=== PATIENT | male | born 1940 | race Caucasian/White ===

== ENCOUNTER 2020-09-01 15:54 | Inpatient (IN) | payer MEDICARE ==
[2020-09-01 20:23] VITALS: BMI 21.7
[2020-09-01] MEDS ORDERED: Ondansetron ODT 4 MG TAB PO PRN (20:39)
[2020-09-01] MEDS ORDERED: Senokot S 8.6-50 MG TAB PO PRN (20:39)
[2020-09-01] MEDS ORDERED: Zolpidem Tartrate 5 MG TAB PO PRN (20:39)
[2020-09-01] MEDS ORDERED: Acetaminophen 500 MG TAB PO PRN (20:50)
[2020-09-01] MEDS ORDERED: Dextrose 50% Abboject 50 ML SYRINGE SLOW IVP PRN (20:53)
[2020-09-01] MEDS: Famotidine 20 MG TAB PO SCH (22:43)
[2020-09-01] MEDS: Clindamycin 150 MG CAP PO SCH (22:44)
[2020-09-01] MEDS: Sulfameth/Trimethoprim DS 800-160mg TAB PO SCH (22:44)
[2020-09-01] MEDS: Carvedilol 6.25 MG TAB PO SCH (22:45)
[2020-09-02] MEDS: HumaLOG 300 UNITS/3 ML VIAL SC PRN ×4 (00:46→17:08)
[2020-09-02] MEDS: Clindamycin 150 MG CAP PO SCH ×3 (05:48→21:06)
[2020-09-02] MEDS: Enoxaparin Sodium 30 MG/0.3 ML SYRINGE SC SCH (08:24)
[2020-09-02] MEDS: Aspirin 81 mg Enteric Coated Tablet PO SCH (08:25)
[2020-09-02] MEDS: Carvedilol 6.25 MG TAB PO SCH ×2 (08:25→21:06)
[2020-09-02] MEDS: Multivit, Therapeutic 1 TAB PO SCH (08:25)
[2020-09-02] MEDS: metFORMIN 500 MG TAB PO SCH ×2 (08:25→17:08)
[2020-09-02] MEDS: Sulfameth/Trimethoprim DS 800-160mg TAB PO SCH ×2 (08:25→21:06)
[2020-09-02] MEDS: Famotidine 20 MG TAB PO SCH ×2 (08:25→21:06)
[2020-09-02] MEDS ORDERED: Non-Formulary Item 1 EACH (Lovastatin [Lovastatin] 10 MG Tablet) PO SCH (17:00)
[2020-09-02] MEDS: Simvastatin 5 MG TAB PO SCH (17:09)
--- NOTE | 2020-09-02 22:50 | HP ---
PRIMARY CARE PHYSICIAN: Out of town. REASON FOR ADMISSION: For skilled rehabilitation at [facility] due to cellulitis of the right foot and lower extremities and physical deconditioning. 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 The patient stated he had been falling every evening when he goes to the bathroom via his wheelchair and upon transferring to the toilet, he will be unable to hold his weight and fallen to the ground. He states he does not normally have difficulty transferring and he recently completed a course of antibiotics for right lower extremity cellulitis. The patient noted he had been progressively getting weak for the last few months. He denied any head injuries, but complains of mild lower discomfort to his lower back. He denied any chest pain, palpitation, or shortness of breath. The patient had a chest x-ray done today in the emergency room, which showed no acute process. He had a CAT scan of the brain done, which showed no acute intracranial processes. An EKG was paced with a heart rate of 113. Upon further evaluation, patient was admitted for generalized weakness, recurrent falls, and cellulitis of his right foot. The patient was started on IV antibiotics and PT/OT was consulted. The patient was also noted to have some superficial wounds to the right lower extremity. He received IV antibiotics. The patient had a full workup and was noted not to be septic. He tolerated the antibiotic well and the decision was made to transfer the patient to skilled rehabilitation for continuation of therapy and continuation of his antibiotic. During hospitalization in [place], the patient had some episodes of confusion, but these progressively resolved. He had an x-ray of the foot done, which did not reveal any osteomyelitis. The patient was evaluated by Physical Therapy and transferred to [facility] for skilled rehabilitation. Upon evaluation of the patient today, he was alert, awake, and oriented x3. He was excited to be in facility. He complains of some pain to the right foot, but other than that, he feels well. He denies any chest pain, shortness of breath, palpitation, or dizziness. PAST MEDICAL HISTORY: Hypertension, coronary artery disease, diabetes type 2, hyperlipidemia. No history of tobacco use. History of broken left arm. PAST SURGICAL HISTORY: AICD placement, CABG x4, amputations of all toes on the right foot, appendectomy. SOCIAL HISTORY: Previously smoked, but quit more than 10 years ago. Denies alcohol use. Denies illicit drug use. Patient lives at home with his family and spouse. FAMILY HISTORY: Patient states both his parents are and had history of high blood pressures. ALLERGIES: THE PATIENT IS ALLERGIC TO CEPHALEXIN. CODE STATUS: The patient is a full code. MEDICATIONS: 1. Tylenol 1000 q.6 hours p.r.n. 2. Coreg 12.5 b.i.d. 3. Clindamycin 300 q.8 x12 days. 4. Lovastatin 20 mg daily. 5. Multivitamin one tab daily. 6. Metformin 1000 b.i.d. 7. Pepcid 20 mg b.i.d. 8. Bactrim DS one tab b.i.d. x10 days. REVIEW OF SYSTEMS: CONSTITUTIONAL: Patient denies any fever or chills. Complains of generalized weakness and fatigue. HEENT: No acute visual or hearing changes. RESPIRATORY: Denies cough, sputum production, shortness of breath. CARDIOVASCULAR: Denies chest pain, dyspnea on exertion, paroxysmal nocturnal dyspnea. GASTROINTESTINAL: Denies nausea, vomiting, constipation, or diarrhea. GENITOURINARY: Denies dysuria, frequency, or urgency. MUSCULOSKELETAL: Patient complains of right foot pain. NEUROLOGICAL: Denies syncopes, focal paralysis, or paresthesia. Denies dizziness. PSYCHIATRIC: Denies anxiety, depression, insomnia, or hallucinations. PHYSICAL EXAMINATION: VITAL SIGNS: Temperature 98.4, pulse 86, respirations 18, O2 saturation 95% on room air, blood pressure 132/76. GENERAL: The patient is alert, awake, and oriented x3. Sitting up in bed, in no apparent distress. HEENT: Eyes, PERRL. Anicteric sclerae. Normocephalic, atraumatic. Moist oral mucous membranes. Extraocular movements intact. NECK: Supple. No lymphadenopathy. HEART: S1 and S2. Regular rate and rhythm. Normal pulses. RESPIRATORY: Clear to auscultation bilaterally. No wheezing. No rhonchi. GASTROINTESTINAL: Positive bowel sounds. Soft, nontender, nondistended. No guarding. No rebound. EXTREMITIES: No edema. Other findings: The patient does have erythema to the right lower foot, diffusely dry yellow flaking skin. The patient does have a superficial oozing; one to the top of his right foot and also the top of his left foot, which is also draining serosanguineous discharge with mild tenderness. ASSESSMENT: 1. Physical deconditioning. 2. Cellulitis of the right foot. 3. Recurrent falls. 4. Peripheral vascular disease. 5. Hypertension. 6. Hyperlipidemia. 7. Diabetes type 2, controlled with oral medications. PLAN: Patient is a 80-year-old male who is admitted for physical deconditioning due to cellulitis of his right foot. The patient will continue oral clindamycin and Bactrim times 10 to 12 days. Patient will continue on all his home medications. We will treat pain with Tylenol. The patient on Lovenox for DVT prophylaxis and Pepcid for GI prophylaxis. The patient will be on Accu-Chek before meals and at bedtime. We will monitor him closely for any hemodynamic instability. We will consult Physical Therapy for gait, ambulation, and strengthening. We will consult Occupational Therapy to help with activities of daily living prior to discharge back to his home. We will do daily wound care to his foot. ESTIMATED LENGTH OF STAY: 1 to 2 weeks. Job ID: [id number]
[2020-09-03] MEDS: Clindamycin 150 MG CAP PO SCH ×3 (05:31→21:12)
[2020-09-03] MEDS: Aspirin 81 mg Enteric Coated Tablet PO SCH (08:46)
[2020-09-03] MEDS: Enoxaparin Sodium 30 MG/0.3 ML SYRINGE SC SCH (08:46)
[2020-09-03] MEDS: metFORMIN 500 MG TAB PO SCH ×2 (08:46→17:29)
[2020-09-03] MEDS: Carvedilol 6.25 MG TAB PO SCH ×2 (08:46→21:10)
[2020-09-03] MEDS: Multivit, Therapeutic 1 TAB PO SCH (08:46)
[2020-09-03] MEDS: Famotidine 20 MG TAB PO SCH ×2 (08:46→21:10)
[2020-09-03] MEDS: Sulfameth/Trimethoprim DS 800-160mg TAB PO SCH ×2 (08:46→21:10)
[2020-09-03] MEDS: HumaLOG 300 UNITS/3 ML VIAL SC PRN ×2 (08:58→17:29)
[2020-09-03] MEDS: Simvastatin 5 MG TAB PO SCH (17:28)
[2020-09-04] MEDS: Clindamycin 150 MG CAP PO SCH ×3 (05:17→22:19)
[2020-09-04] MEDS: Famotidine 20 MG TAB PO SCH ×2 (08:38→20:57)
[2020-09-04] MEDS: Aspirin 81 mg Enteric Coated Tablet PO SCH (08:38)
[2020-09-04] MEDS: Sulfameth/Trimethoprim DS 800-160mg TAB PO SCH ×2 (08:38→20:57)
[2020-09-04] MEDS: metFORMIN 500 MG TAB PO SCH ×2 (08:38→17:20)
[2020-09-04] MEDS: Enoxaparin Sodium 30 MG/0.3 ML SYRINGE SC SCH (08:39)
[2020-09-04] MEDS: Multivit, Therapeutic 1 TAB PO SCH (08:39)
[2020-09-04] MEDS: Carvedilol 6.25 MG TAB PO SCH ×2 (08:40→20:57)
[2020-09-04] MEDS: HumaLOG 300 UNITS/3 ML VIAL SC PRN (11:58)
[2020-09-04] MEDS ORDERED: metFORMIN 500 MG TAB ONE (17:14)
[2020-09-04] MEDS: Simvastatin 5 MG TAB PO SCH (17:21)
[2020-09-05] MEDS: Clindamycin 150 MG CAP PO SCH ×3 (05:18→22:14)
[2020-09-05] MEDS: Famotidine 20 MG TAB PO SCH ×2 (08:01→22:13)
[2020-09-05] MEDS: Carvedilol 6.25 MG TAB PO SCH ×2 (08:01→22:13)
[2020-09-05] MEDS: Aspirin 81 mg Enteric Coated Tablet PO SCH (08:03)
[2020-09-05] MEDS: Sulfameth/Trimethoprim DS 800-160mg TAB PO SCH ×2 (08:03→21:30)
[2020-09-05] MEDS: Multivit, Therapeutic 1 TAB PO SCH (08:03)
[2020-09-05] MEDS: Enoxaparin Sodium 30 MG/0.3 ML SYRINGE SC SCH (08:03)
[2020-09-05] MEDS: metFORMIN 500 MG TAB PO SCH ×2 (08:07→16:59)
[2020-09-05] MEDS: HumaLOG 300 UNITS/3 ML VIAL SC PRN (11:43)
[2020-09-05] MEDS: Simvastatin 5 MG TAB PO SCH (16:58)
[2020-09-06] MEDS: Clindamycin 150 MG CAP PO SCH ×3 (05:22→21:14)
[2020-09-06] MEDS: Famotidine 20 MG TAB PO SCH ×2 (08:35→20:19)
[2020-09-06] MEDS: Aspirin 81 mg Enteric Coated Tablet PO SCH (08:35)
[2020-09-06] MEDS: metFORMIN 500 MG TAB PO SCH ×2 (08:35→16:58)
[2020-09-06] MEDS: Sulfameth/Trimethoprim DS 800-160mg TAB PO SCH ×2 (08:35→20:19)
[2020-09-06] MEDS: Multivit, Therapeutic 1 TAB PO SCH (08:35)
[2020-09-06] MEDS: Enoxaparin Sodium 30 MG/0.3 ML SYRINGE SC SCH (08:36)
[2020-09-06] MEDS: Carvedilol 6.25 MG TAB PO SCH ×2 (08:36→20:19)
[2020-09-06] MEDS ORDERED: Emollient 15 oz bottle 450 ML, Triamcinolone Acetonide 200 MG TOP SCH ×2 (14:45→15:00)
[2020-09-06] MEDS: Simvastatin 5 MG TAB PO SCH (16:58)
[2020-09-07] MEDS: Clindamycin 150 MG CAP PO SCH ×3 (04:59→21:50)
[2020-09-07] MEDS: Aspirin 81 mg Enteric Coated Tablet PO SCH (08:30)
[2020-09-07] MEDS: Famotidine 20 MG TAB PO SCH ×2 (08:30→20:12)
[2020-09-07] MEDS: Enoxaparin Sodium 30 MG/0.3 ML SYRINGE SC SCH (08:30)
[2020-09-07] MEDS: metFORMIN 500 MG TAB PO SCH ×2 (08:30→17:31)
[2020-09-07] MEDS: Multivit, Therapeutic 1 TAB PO SCH (08:30)
[2020-09-07] MEDS: Sulfameth/Trimethoprim DS 800-160mg TAB PO SCH ×2 (08:30→20:12)
[2020-09-07] MEDS: Carvedilol 6.25 MG TAB PO SCH ×2 (08:30→20:12)
[2020-09-07] MEDS: Emollient 15 oz bottle 450 ML, Triamcinolone Acetonide 200 MG TOP SCH (08:31)
[2020-09-07] MEDS: Simvastatin 5 MG TAB PO SCH (17:31)
[2020-09-08] MEDS: Clindamycin 150 MG CAP PO SCH ×3 (05:45→21:46)
[2020-09-08] MEDS: Enoxaparin Sodium 30 MG/0.3 ML SYRINGE SC SCH (08:26)
[2020-09-08] MEDS: Famotidine 20 MG TAB PO SCH ×2 (08:26→21:46)
[2020-09-08] MEDS: Multivit, Therapeutic 1 TAB PO SCH (08:27)
[2020-09-08] MEDS: metFORMIN 500 MG TAB PO SCH ×2 (08:27→17:18)
[2020-09-08] MEDS: Sulfameth/Trimethoprim DS 800-160mg TAB PO SCH ×2 (08:27→21:45)
[2020-09-08] MEDS: Aspirin 81 mg Enteric Coated Tablet PO SCH (08:27)
[2020-09-08] MEDS: Carvedilol 6.25 MG TAB PO SCH ×2 (08:28→21:46)
[2020-09-08] MEDS: Emollient 15 oz bottle 450 ML, Triamcinolone Acetonide 200 MG TOP SCH (08:29)
[2020-09-08] MEDS: Simvastatin 5 MG TAB PO SCH (17:17)
[2020-09-09] MEDS: Clindamycin 150 MG CAP PO SCH ×2 (05:13→14:55)
[2020-09-09] MEDS: Aspirin 81 mg Enteric Coated Tablet PO SCH (08:08)
[2020-09-09] MEDS: Multivit, Therapeutic 1 TAB PO SCH (08:08)
[2020-09-09] MEDS: Carvedilol 6.25 MG TAB PO SCH (08:08)
[2020-09-09] MEDS: Famotidine 20 MG TAB PO SCH (08:08)
[2020-09-09] MEDS: Sulfameth/Trimethoprim DS 800-160mg TAB PO SCH (08:08)
[2020-09-09] MEDS: metFORMIN 500 MG TAB PO SCH (08:09)
[2020-09-09] MEDS: Enoxaparin Sodium 30 MG/0.3 ML SYRINGE SC SCH (08:09)
[2020-09-09] MEDS: Emollient 15 oz bottle 450 ML, Triamcinolone Acetonide 200 MG TOP SCH (08:11)
[2020-09-09 08:34] VITALS: BP 113/71; TEMP 97.7
--- NOTE | 2020-09-12 07:23 | DIS ---
DATE OF ADMISSION: 09/01/2020 DATE OF DISCHARGE: 09/09/2020 DISCHARGING PHYSICIAN: Anum Castellano MD. PRIMARY CARE PHYSICIAN: Out of town. DISCHARGE DISPOSITION: Back to home with family. DISCHARGE MEDICATIONS: 1. Clindamycin 300 mg q.8 x2 more days. 2. Bactrim DS one tab p.o. b.i.d. x2 more days, #4. 3. Metformin 1000 mg b.i.d. 4. Multivitamin one tab daily. 5. Lovastatin 20 mg daily. 6. Coreg 12.5 mg b.i.d. 7. Aspirin 81 mg daily. DISCHARGE INSTRUCTIONS: Patient to follow up with primary care physician in 1 week. [facility] to start physical therapy and occupational therapy at home. Patient to ambulate with 4-wheel rolling walker at all times and also transfer with a wheelchair. Family to do dressings to wounds to bilateral feet daily. BRIEF HOSPITAL COURSE: Mr. Mensah is a very pleasant 80-year-old male who has a medical history of coronary artery disease; diabetes type 2; hypertension; hyperlipidemia; peripheral vascular disease, status post amputation to his bilateral toes. Patient had presented to the hospital at [facility] in [place] due to recurrent falls and generalized weakness. He was noted to have cellulitis of the right lower extremities in addition to superficial wounds. The patient was started on IV antibiotics and he progressively improved. He was noted to be deconditioned and his very ill at home and recently was discharged home on hospice care, so the decision was made to transfer the patient to [facility] for skilled rehabilitation. The patient progressively improved. During hospitalization here, the cellulitis to the lower extremities improved significantly and on day of discharge, the patient did not have any erythema to the lower extremities. The patient did have some bilateral superficial wounds upon admission, but on day of discharge, on September 09, 2020, both wounds were significantly improved. The patient was stronger and he requested to go home as his was being placed on hospice care and has only a few days to live. The patient during hospitalization here tolerated physical therapy well. He was able to ambulate from wheelchair with Physical Therapy was able to walk about 20 feet and he had met some of his goals. The decision was for patient initially to have skilled rehabilitation at outpatient [facility] [place], but upon speaking to daughter, she noted due to her mother she was unable to bring him for physical therapy appointments and requested for patient to have home health and family chose [facility]. The patient was discharged home in a stable condition with family. DISCHARGE VITAL SIGNS: Temperature 97.7, pulse 64, respirations 18, O2 saturation 100% on room air, blood pressure 113/71. Estimated length of time used to evaluate the patient and prepare this discharge summary on also university counselor patient and family was greater than 45 minutes. Job ID: [id number]
--- NOTE | 2020-09-14 13:15 | PQF ---
CLINICAL DOCUMENTATION CLARIFICATION FORM: Dear : Anum Castellano MD Date / Time: 09/14/2020 Please exercise your independent, professional judgment in responding to the clarification form. Clinical indicators are provided on the bottom of this form for your review Please check appropriate box(s): Right foot Cellulitis [ ] Due to Diabetes [ ] not due to Diabetes [ ] Other diagnosis (Please specify if any) [ ] Unable to determine In addition, please specify: Present on Admission (POA): [ ] Yes [ ] No [ ] Unable to determine Physician Signature: Date/Time: For continuity of documentation, please document condition throughout progress notes and discharge summary. Thank You To be completed by CDI/Coding staff for physician review: Present Clinical Indicators - Signs / Symptoms / Labs Results and Location in Medical Record [x] Cellulitis of the right foot H&P on 09/02 [x] Patient does have erythema to the right lowe foot, diffusely dry yellow flaking skin. H&P on 09/02 [x] Patient does have a superficial oozing, one to the top of his right foot & also the top of his left foot H&P on 09/02 [x] left foot which is also draining serosanguineous discharge with mild tenderness H&P on 09/02 Present Risk Factors Results and Location in Medical Record [x ] Peripheral Vascular Disease H&P on 09/02 [x ] Diabetes H&P on 09/02 [ ] Neuropathy [ ] Recent surgery or infection of surgical site [ ] Recent injury to site [ ] Immunosuppression [ ] IV Drug Use Present Treatments Results and Location in Medical Record [x] Humalog Medication from 09/01 to 09/09 [x] Patient will continue oral clindamycin & bactrim H&P on 09/02 [employer] Maintainer Signature: AAS Phone #: Date/Time: 09/14/2020 This is a permanent part of the Medical Record [facility]
== END 2020-09-09 16:05 | disposition home or self-care (01) | DRG 603 ==
LOC: MADMS 19:58
PROVIDERS: ADMIT Family Medicine; ATTEND Family Medicine
DX: L03.115 Cellulitis of right lower limb (principal); E11.51 Type 2 diabetes mellitus with diabetic peripheral angiopathy without gangrene; I10 Essential (primary) hypertension; E78.5 Hyperlipidemia, unspecified; R29.6 Repeated falls; I25.10 Atherosclerotic heart disease of native coronary artery without angina pectoris; Z79.899 Other long term (current) drug therapy; Z90.49 Acquired absence of other specified parts of digestive tract; Z95.1 Presence of aortocoronary bypass graft; Z95.810 Presence of automatic (implantable) cardiac defibrillator; Z89.421 Acquired absence of other right toe(s); Z88.1 Allergy status to other antibiotic agents
CPT/HCPCS: 36416; 90471; 90732; G0009; J1650; J3301